=== PATIENT | male | born 1995 | race Caucasian/White ===

== ENCOUNTER 2016-12-18 21:39 | Emergency (ER) | payer SELFPAY ==
[~2016-12-18] VITALS: Ht 175.3 cm; Wt 72.3 kg
[2016-12-18 21:41] VITALS: TEMP 100.5
[2016-12-18 22:13] VITALS: BP 120/70
[2016-12-18 22:56] VITALS: PULSE 109
== END 2016-12-18 22:57 | disposition home or self-care (01) ==
LOC: COL.ER 21:39
DX: F10.129 Alcohol abuse with intoxication, unspecified (principal)